=== PATIENT | male | born 1990 | race Caucasian/White ===

== ENCOUNTER → 2022-11-22 | Outpatient (CLI) | payer MEDICAID, SELFPAY ==
[2022-11-22 15:42] LABS: ALB/GLOB Ratio 1.5 RATIO (0.9-2.4); AST(SGOT) 13 U/L (15-37); Alanine Aminotransfer ALT/SGPT 20 U/L (16-61); Albumin, Serum 4.1 g/dL (3.2-5.0); Alkaline Phosphatase 57 U/L (45-117); Anion Gap 4 (5-15); BUN 12 mg/dL (7-18); BUN/Creat Ratio 12.3 RATIO (10-20); Calcium,Total 9.5 mg/dL (8.5-10.1); Chloride 105 mmol/L (98-107); Creatinine, Serum 0.97 mg/dL (0.70-1.30); EST Glomerular Filtration Rate 96 mL/min (>60); Est Glom Filt Rate - Afr Amer 116 mL/min (>60); Globulin 2.8 g/dL (2.2-4.2); Glucose 74 mg/dL (74-106); Lipase 176 U/L (73-393); Potassium 3.4 mmol/L (3.5-5.1); Protein, Total 6.9 g/dL (6.4-8.2); Sodium Level 138 mmol/L (136-145); T4 Free Direct 1.06 ng/dL (0.76-1.46)
[2022-11-22 15:43] LABS: Absolute Lymphocyte Count 1.52 X10^3/uL (0.83-4.51); Absolute Neutrophil Count 2.7 X10^3/uL (2.0-7.7); Basophil# 0.05 X10^3/uL; Eosinophil# 0.26 X10^3/uL; Eosinophils% 5.1 % (0-5); Hematocrit 47.4 % (40-54); Hemoglobin 15.6 g/dL (13.0-16.5); Lymphocyte # 1.52 X10^3/ul (0.83-4.51); Lymphocyte % 29.9 % (19-41); Mean Corp Hgb Conc 32.9 g/dL (32-36); Mean Corpuscular Hgb 29.1 pg (27.0-32.0); Mean Corpuscular Volume 88.3 fL (80-94); Monocyte# 0.56 X10^3/uL; NRBC Flagged by Analyzer 0 % (0-5); Neutrophil # 2.69 X10^3/uL (2.7-7.7); Neutrophil % 52.8 % (47-70); Platelet Count 205 K/mm3 (150-450); RBC Distribution Width CV 13.1 % (11.6-14.6); RBC Distribution Width SD 42.5 fl (35.1-43.9); Red Blood Count 5.37 M/mm3 (4.6-6.2); White Blood Count 5.1 K/mm3 (4.4-11.0)
[2022-11-28 16:09] LABS: Thyroid Stim Immunoglob <0.10 IU/L (0.00-0.55)
[2022-11-28 16:36] LABS: Anti-Thyroglobulin AB < 1.0 IU/mL (0.0-0.9); Thyroglobulin, Serum Qt. 18.1 ng/mL (1.4-29.2); Thyroid Peroxidase AB < 9 IU/mL (0-34)
== END | disposition home or self-care (01) ==
LOC: MFPLAB 12:21
PROVIDERS: PCP Family Medicine; Visit Provider Family Medicine
DX: R19.8 Other specified symptoms and signs involving the digestive system and abdomen (principal); R35.89 Other polyuria; R10.9 Unspecified abdominal pain; E01.0 Iodine-deficiency related diffuse (endemic) goiter
CPT/HCPCS: 36415; 80053; 83690; 84432; 84439; 84443; 84445; 85025; 86376; 86800

== ENCOUNTER → 2022-11-24 | Outpatient (CLI) | payer MEDICAID, SELFPAY ==
--- NOTE | 2022-11-24 10:15 | RAD_ITS ---
STUDY: X-RAY - ESOPHAGUS (BARIUM SWALLOW) WITH FLUOROSCOPY REASON FOR EXAM: Male, 32 years old. DYSPHAGIA TECHNIQUE: 14 view(s) of the esophagus were obtained following swallowing of barium. FLUOROSCOPY TIME (if supplied): (34 seconds) minutes/seconds COMPARISON: None. FINDINGS: There is no demonstrated esophageal foreign body. There is no demonstrated stricture or mucosal abnormality. Normal gastroesophageal junction, without a demonstrated hiatal hernia. The patient ingested a 12 mm tablet of barium without any difficulty. Normal visualized aortic arch and descending thoracic aorta. Normal visualized pulmonary parenchyma. Normal visualized osseous structures of the thorax. RAD/Esophagus Dual Contrast IMPRESSION: Normal plain film x-ray examination (barium swallow) of the esophagus. Electronically Signed: Sanchez Taylor MD at 10:57 EST ,
--- NOTE | 2022-11-24 10:26 | US_ITS ---
STUDY: THYROID ULTRASOUND REASON FOR EXAM: Male, 32 years old. Thyromegaly TECHNIQUE: Ultrasound evaluation of the thyroid was performed with real-time and static vela-scale imaging. COMPARISON: None. FINDINGS: RIGHT LOBE: The right lobe of the thyroid gland is enlarged and measures 5.4 cm x 2.1 cm x 1.7 cm. There is a homogeneous echotexture. There are no demonstrated solid, cystic or complex lesions. LEFT LOBE: The left lobe of the thyroid gland is enlarged and measures 5.7 cm x 2 cm x 1.8 cm. There is a homogeneous echotexture. There is a 3 mm x 3 mm x 2 mm well-defined hypoechoic solid nodule in the midpole of the left lobe with the perinodular and intralobular nodular vascularity. ISTHMUS: The isthmus measures 2.0 mm. The regional lymph nodes are normal. US/Thyroid IMPRESSION: Thyromegaly. 3 mm x 3 mm x 2 mm well-defined hypoechoic solid nodule in the midpole of the left lobe of the thyroid. Electronically Signed: Sanchez Taylor MD at 14:05 EST ,
--- NOTE | 2022-11-24 10:26 | US_ITS ---
INDICATION: Incomplete bladder emptying, evaluate postvoid residue EXAMINATION: Ultrasound ultrasound of the bladder TECHNIQUE: Edwards scale and color doppler imaging was performed of the urinary bladder. COMPARISON: None. FINDINGS: No definite stones, masses, or wall thickening. Limited evaluation of the bladder due to incomplete distention. Pre-void volume is 96 cc. Post-void volume is 9.8. Ureteral jet seen to the bladder bilaterally. Calcifications are seen in the region of the prostate. The prostate volume was calculated to be 26 cc. US/Post Void Residual Bladder IMPRESSION: Small not significant post void residue. Electronically Signed: Adeel Andrade MD at 9:29 EST ,
== END | disposition home or self-care (01) ==
LOC: US 10:01
PROVIDERS: PCP Family Medicine; Visit Provider Family Medicine
DX: R13.10 Dysphagia, unspecified (principal); E01.0 Iodine-deficiency related diffuse (endemic) goiter; E04.1 Nontoxic single thyroid nodule
CPT/HCPCS: 51798; 74221; 76536

== ENCOUNTER 2023-11-20 06:28 | Day surgery (SDC) | payer MEDICAID, SELFPAY ==
[2023-11-20] VITALS (7 sets, daily range): BP systolic 93–145; BP diastolic 52–115; PULSE 60–88; RESP 12–16; TEMP 36.2–36.6; O2SAT 94–100; BMI 22.1
[2023-11-20] MEDS: Lactated Ringers 1,000 ML 15 ML IV (06:59)
--- NOTE | 2023-11-20 07:16 | HP.PCM_ITS ---
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 A written compromise surgical consult will be returned to him. It is of note that the patient was initiated on omeprazole therapy 20 mg orally daily starting November 22, 2022 as the patient has symptoms consistent with GERD. It is of note that 4 to 5 years ago the patient suddenly lost about 100 pounds in weight. At that point he had frequent urination as well. That problem kind of occurs constantly. He has been having problems with reflux and nausea issues. If he does not continuously eat small amounts he will get lightheaded or foggy. Has not had any melena but on rare occasion will have some bright red blood per rectum. He is not on any blood thinners but he does take ibuprofen as needed. No history of DVT. On November 24, 2022 he had a barium esophagram. This was felt to be normal with no hiatal hernia. 12 mm barium tablet passed without difficulty. He is not aware of any family history of colon polyps or colon cancer. More recently has had some intermittent left mid abdominal pain kind of a sharp nature. Unclear as to that etiology ROS General General: Yes weight change and fatigue; No appetite, colon cancer, breast cancer or weakness HEENT HEENT: Yes difficulty swallowing and swollen glands; No eye injury, eye surgery or hoarseness Endo Endocrine: No thyroid disease, diabetes mellitus, thyroid cancer, Hair loss, heat intolerance or cold intolerance Skin Skin: No rash or changing moles Breast Breast: No left breast lump, right breast lump, nipple discharge, breast pain, abnormal mammogram, abnormal US or breast enlargement Musc Musculoskeletal: Yes back problems; No arthritis, rheumatoid arthritis, gout or joint pain Cardio Cardiovascular: No murmur, pacemaker, heart disease, atrial fibrillation, high blood pressure, heart attack, heart stent, palpitations, shortness of breat with exertion or chest pain Psych Psychiatric: Yes depression and anxiety; No hearing voices Resp Respiratory: Yes shortness of breath, No sleep apnea, No cough, No COPD, Yes asthma, No emphysema and No wheezing Gastro Gastrointestinal: Yes abdominal pain, Yes nausea or vomiting, Yes diarrhea, Yes constipation, Yes blood in stool, Yes acid reflux, No hemorrhoids, No ulcers, No gallbladder problem and No black,tarry stools Jm Hematologic: No blood thinners, No blood disorders, No bleeding, No anemia and No blood clots Neuro Neurologic: No system reviewed and no additional complaints, except as documented, No as per HPI, No abnormal gait, No abnormal hearing, No abnormal movements, No abnormal speech, No behavioral changes, No burning sensations, No confusion, No convulsions, No disequilibrium, No dizziness, No localized weakness, No frequent falls, No headache(s), No lack of coordination, No loss of vision, No memory loss, No numbness, No other visual disturbances, No radicular pain, No restless legs, No sensory deficit, No syncope, No tingling, No tremor(s), No weakness and No other Exam Const General: cooperative, comfortable and no acute distress Nutritional Appearance: average body habitus Orientation: alert, awake and oriented x3 HENMT Head: normal to inspection Eyes General: appearance normal, both eyes and all related structures Neck Neck: normal visual inspection Chest Chest palpation & inspection: normal inspection of the chest Resp Effort & Inspection: normal respiratory effort Auscultation: clear to auscultation bilaterally Cardio Rate: regular rate Rhythm: regular rhythm GI Palpation: soft and no hepatosplenomegaly Other: Abdomen is soft, I do not detect any hepatosplenomegaly, normal bowel sounds Musc Cervical Spine: normal cervical lordosis Skin General: no rashes or lesions noted Neuro General: patient alert, patient awake and patient oriented x3 Extrem General: no calf tenderness Psych Appearance: grossly normal Assessment and Plan Assessment and Plan (1) GERD (gastroesophageal reflux disease): Status: Acute Qualifiers: Esophagitis presence: esophagitis presence not specified Qualified Code(s): K21.9 - Gastro-esophageal reflux disease without esophagitis (2) Diarrhea: Status: Acute Qualifiers: Diarrhea type: unspecified type Qualified Code(s): R19.7 - Diarrhea, unspecified (3) Constipation: Status: Acute Qualifiers: Constipation type: unspecified constipation type Qualified Code(s): K59.00 - Constipation, unspecified Plan: 33-year-old gentleman. Concerns about reflux symptoms and nausea as well as variable bowel habits and looser diarrheal stools. Previous history of weight loss. Some symptoms that sound like transient hypoglycemia. I do propose for him a combined esophagogastroduodenoscopy with very careful inspection and biopsies as appropriate. Propose for him a colonoscopy with anticipated random biopsies as well. We will try to intubate the terminal ileum. He did have some questions about the sedation for the procedure and we will use this BACKEND PYTHON DEVELOPER. He has concerns about the clear liquid diet we discussed means of increasing his blood sugar with liquids in hopes of reverting any bowel prep induced difficulties. He has had an opportunity to ask and have questions answered. I appreciate the opportunity of assisting with his surgical care and we will schedule and proceed as noted. At this particular moment I am not detecting a surgical etiology to his issues. Copy: Dr Ye Flores M.D., F.A.C.S. I have examined the patient and the H&P has been reviewed. There are no clinical changes since date of exam. Patel Flores M.D., F.A.C.S.
--- NOTE | 2023-11-20 07:30 | COLBX_PTH ---
PATHOLOGY RESULTS PATIENT: EDGARDO MURILLO ACE LOC: EN U#:[id number] AGE/SX: 33/M ROOM: RE11/20/[address]: Dr. Patel Flores MD : 1990 BED: DIS: 11/20/2023 SPEC #: [id number] RECD: 11/20/23 11:38 STATUS: ESTER DUFF #: [id number] JUDSON: 11/20/23 07:[address]: Patel Flores DEPT: SURGICAL PATHOLOGY RECD BY: Nena Dong ENTERED: 11/20/23 11:39 SP TYPE: COLON BX OTHR DR: Dr. Ye Calloway MD Tissues: Duodenum, NOS Gastric mucous membrane Esophageal mucous membrane Esophageal mucous membrane Ileum, NOS COLON BIOPSY Rectum, NOS Procedures: Special Stain Group II Surgery Specimen Level IV Alcian Blue/PAS (control) HEADER OPERATION: Colonoscopy with biopsies and EGD with biopsies PRE-OP DIAGNOSIS: GERD, diarrhea, constipation TISSUE SUBMITTED: A - Duodenum biopsy, B - Antrum biopsy for H. pylori and path, C - Distal esophagus biopsy, D - Mid esophagus biopsy, E - Terminal ileum biopsy, F - Random colonic biopsy, G - Rectal polypoid mass biopsy MICROSCOPIC DIAGNOSIS A. Duodenum, biopsy: Fragments of duodenal mucosa, no pathologic diagnosis. B. Antrum, biopsy: Mild gastritis. See microscopic description and comment. C. Distal esophagus, biopsy: Fragments of gastroesophageal mucosa with chronic inflammation. Intestinal metaplasia (goblet cell metaplasia) not identified. See comment. D. Mid esophagus, biopsy: Fragments of benign squamous epithelium. E. Terminal ileum, biopsy: A fragment of small intestinal mucosa, no pathologic diagnosis. F. Colon, random biopsy: Fragments of colonic mucosa, no pathologic diagnosis. G. Rectal polypoid mass, biopsy: Consistent with mucosal prolapse syndrome with focal ulceration and associated acute inflammation. SJ:brandt 11/21/2023 COMMENT B. The results of immunohistochemistry for Helicobacter pylori will be reported separately ([id number]). C. The specimen predominantly consists of squamous mucosa. Alcian blue/PAS stain with matched control is used in the evaluation of the specimen. Case has been reviewed in consultation with Dr. Peoples who concurs with the above diagnosis. IDC:AM MICROSCOPIC DESCRIPTION Slides are reviewed. B. The specimen shows fragments of gastric mucosa with chronic inflammatory cell infiltrates in the lamina propria consisting of lymphocytes and plasma cells, consistent with mild chronic gastritis. GROSS DESCRIPTION A - Received in fixative is one container labeled with the patient's name and designated duodenum biopsy. The specimen consists of two irregular fragments of light middleton soft tissue that in aggregate measure 0.8 x 0.4 x 0.1 cm. The specimen is totally submitted in one cassette. B - Received in fixative is one container labeled with the patient's name and designated antrum biopsy. The specimen consists of one irregular fragment of light middleton soft tissue that measures 0.6 x 0.3 x 0.1 cm. The specimen is totally submitted in one cassette. C - Received in fixative is one container labeled with the patient's name and designated distal esophagus biopsy. The specimen consists of two irregular fragments of light middleton soft tissue that in aggregate measure 0.6 x 0.6 x 0.1 cm. The specimen is totally submitted in one cassette. D - Received in fixative is one container labeled with the patient's name and designated mid esophagus biopsy. The specimen consists of one irregular fragment of light middleton soft tissue that measures 0.6 x 0.3 x 0.1 cm. The specimen is totally submitted in one cassette. E - Received in fixative is one container labeled with the patient's name and designated terminal ileum biopsy. The specimen consists of one irregular fragment of light middleton soft tissue that measures 0.4 x 0.4 x 0.1 cm. The specimen is totally submitted in one cassette. F - Received in fixative is one container labeled with the patient's name and designated random colonic biopsy. The specimen consists of multiple irregular fragments of light middleton soft tissue that in aggregate measure 1.0 x 0.6 x 0.1 cm. The specimen is totally submitted in one cassette. G - Received in fixative is one container labeled with the patient's name and designated rectal polypoid mass. The specimen consists of multiple irregular fragments of light middleton soft tissue that in aggregate measure 1.0 x 0.2 x 0.1 cm. The specimen is totally submitted in one cassette. / SJ:brandt 11/20/2023 TC:3 CPT: 28031 x7, 92042
--- NOTE | 2023-11-20 07:30 | IMM_PTH ---
PATHOLOGY RESULTS PATIENT: EDGARDO MURILLO ACE LOC: EN U#:[id number] AGE/SX: 33/M ROOM: RE11/20/[address]: Dr. Patel Flores MD : 1990 BED: DIS: 11/20/2023 SPEC #: [id number] RECD: 11/20/23 12:31 STATUS: ESTER RERonna #: [id number] JUDSON: 11/20/23 07:[address]: Patel Flores DEPT: IMMUNOHISTOCHEMISTRY RECD BY: Cat Sandoval ENTERED: 11/20/23 12:31 SP TYPE: IMMUNO OTHR DR: Dr. Ye Calloway MD Tissues: Stomach, NOS Procedures: H Pylori (initial) PHYSICIAN & INSTITUTION [place] [address] SPECIMEN INFORMATION: Tissue Source: B - Antrum Clinical Info: GERD, diarrhea, constipation Specimen Number: [id number] CPT code: 76241 METHODOLOGY: Deparaffinized sections of prefer/formalin-fixed tissue or PAP/DQ stained slides are incubated with monoclonal/polyclonal antibodies/oligonucleotide probes. Localization is made via biotin free immunoperoxidase method. Appropriate controls are performed and reacted as expected. Results on target cell population are indicated in the following table: RESULTS: ANTIBODY / CLONE RESULT Block B H Pylori (polyclonal) negative These tests were developed and their performance characteristics determined by [facility]. They may not have been cleared or approved by the U.S. Food and Drug Administration. The FDA has determined that such clearance or approval is not necessary. The above immunohistochemical/dualISH markers are ordered and reviewed by the Pathologist. INTERPRETATION: B. Antrum, biopsy: Negative for Helicobacter pylori organisms. SJ:brandt 11/21/2023
--- NOTE | 2023-11-20 08:18 | OP.CCLET_ITS ---
11/20/2023 Ye Calloway [address] [place] [address] Re : Upper GI endoscopy procedure for Reese Thomas Dear Dr. Calloway This procedure was performed on Monday, November 20, 2023. My impressions and recommendations are as follows: Impressions : - Normal middle third of esophagus. Biopsied. - Normal distal esophagus. Biopsied. - Z-line regular, 41 cm from the incisors. - 1 cm hiatal hernia. - Erythematous mucosa in the antrum. Biopsied. - Normal examined duodenum. Biopsied. Recommendations : - Discharge patient to home. - Resume previous diet. - Continue present medications. - Telephone my office for pathology results in 1 week. My findings are described in the full procedure note, which is enclosed. If I can be of further assistance, please feel free to contact me at Doctor phone number(s): Work: . Sincerely, Patel Flores MD 11/20/2023 8:17:40 AM This report has been signed electronically.
--- NOTE | 2023-11-20 08:18 | OP.EGD_ITS ---
Patient Name: Reese Thomas Procedure Date: 11/20/2023 7:39 AM Date of : 1990 Age: 33 Procedure: Upper GI endoscopy Indications: Suspected gastro-esophageal reflux disease Providers: Patel Flores MD Medicines: See the Anesthesia note for documentation of the administered medications Complications: No immediate complications. Procedure: Pre-Anesthesia Assessment: - Prior to the procedure, a History and Physical was performed, and patient medications and allergies were reviewed. The patient's tolerance of previous anesthesia was also reviewed. The risks and benefits of the procedure and the sedation options and risks were discussed with the patient. All questions were answered, and informed consent was obtained. Prior Anticoagulants: The patient has taken no anticoagulant or antiplatelet agents. ASA Grade Assessment: II - A patient with mild systemic disease. After reviewing the risks and benefits, the patient was deemed in satisfactory condition to undergo the procedure. After obtaining informed consent, the endoscope was passed under direct vision. Throughout the procedure, the patient's blood pressure, pulse, and oxygen saturations were monitored continuously. The Colonoscope was introduced through the mouth, and advanced to the second part of duodenum. The upper GI endoscopy was accomplished without difficulty. The patient tolerated the procedure well. Scope In: 7:45:56 AM Scope Out: 7:52:16 AM Total Procedure Duration Time 0 hours 6 minutes 20 seconds Findings: The middle third of the esophagus was normal. Biopsies were taken with a cold forceps for histology. The distal esophagus was normal. Biopsies were taken with a cold forceps for histology. The Z-line was regular and was found 41 cm from the incisors. A 1 cm hiatal hernia was present. Diffuse mildly erythematous mucosa without bleeding was found in the gastric antrum. Biopsies were taken with a cold forceps for histology. The examined duodenum was normal. Biopsies were taken with a cold forceps for histology. Impression: - Normal middle third of esophagus. Biopsied. - Normal distal esophagus. Biopsied. - Z-line regular, 41 cm from the incisors. - 1 cm hiatal hernia. - Erythematous mucosa in the antrum. Biopsied. - Normal examined duodenum. Biopsied. Recommendation: - Discharge patient to home. - Resume previous diet. - Continue present medications. - Telephone my office for pathology results in 1 week. Procedure Code(s): --- Professional --- 61057, Esophagogastroduodenoscopy, flexible, transoral; with biopsy, single or multiple Diagnosis Code(s): --- Professional --- K44.9, Diaphragmatic hernia without obstruction or gangrene K31.89, Other diseases of stomach and duodenum CPT copyright 2021 [employer] [place] [employer]. All rights reserved. The codes documented in this report are preliminary and upon spa host review may be revised to meet current compliance requirements. Patel Flores MD 11/20/2023 8:17:40 AM This report has been signed electronically. Number of Addenda: 0 Note Initiated On: 11/20/2023 7:39 AM
--- NOTE | 2023-11-20 08:22 | OP.CCLET_ITS ---
11/20/2023 Ye Calloway [address] [place] [address] Re : Colonoscopy procedure for Reeseleón Thomas Dear Dr. Calloway This procedure was performed on Monday, November 20, 2023. My impressions and recommendations are as follows: Impressions : - Non-thrombosed external hemorrhoids, non-thrombosed internal hemorrhoids and internal hemorrhoids (Grade I) found on digital rectal exam. - The examined portion of the ileum was normal. Biopsied. - Congested mucosa in the mid rectum. Biopsied. - Biopsies were taken with a cold forceps from the entire colon for evaluation of microscopic colitis. Recommendations : - Discharge patient to home. - Resume previous diet. - Continue present medications. - Repeat colonoscopy age 52 for screening purposes. - Telephone my office for pathology results in 1 week. Congested mid to proximal rectal mucosa of undetermined urology. Possibly bowel prep related. Will await pathology results. Random colonic biopsies obtained as well looking for microcytic colitis. My findings are described in the full procedure note, which is enclosed. If I can be of further assistance, please feel free to contact me at Doctor phone number(s): Work: . Sincerely, Patel Flores MD 11/20/2023 8:21:52 AM This report has been signed electronically.
--- NOTE | 2023-11-20 08:22 | OP.COLON_ITS ---
Patient Name: Reese Thomas Procedure Date: 11/20/2023 7:52 AM Date of : 1990 Age: 33 Procedure: Colonoscopy Indications: Clinically significant diarrhea of unexplained origin Providers: Patel Flores MD Medicines: See the Anesthesia note for documentation of the administered medications Patient Profile: Last Colonoscopy: none. The patient's first colonoscopy is today. Complications: No immediate complications. Procedure: Pre-Anesthesia Assessment: - Prior to the procedure, a History and Physical was performed, and patient medications and allergies were reviewed. The patient's tolerance of previous anesthesia was also reviewed. The risks and benefits of the procedure and the sedation options and risks were discussed with the patient. All questions were answered, and informed consent was obtained. Prior Anticoagulants: The patient has taken no anticoagulant or antiplatelet agents. ASA Grade Assessment: II - A patient with mild systemic disease. After reviewing the risks and benefits, the patient was deemed in satisfactory condition to undergo the procedure. After I obtained informed consent, the scope was passed under direct vision. Throughout the procedure, the patient's blood pressure, pulse, and oxygen saturations were monitored continuously. The Colonoscope was introduced through the anus and advanced to the terminal ileum. The colonoscopy was performed without difficulty. The patient tolerated the procedure well. The quality of the bowel preparation was good. The terminal ileum, the ileocecal valve and the appendiceal orifice were photographed. Scope In: 7:53:33 AM Scope Withdrawal Time 0 hours 15 minutes 12 seconds Scope Out: 8:13:22 AM Total Procedure Duration Time 0 hours 19 minutes 49 seconds Findings: The digital rectal exam findings include non-thrombosed external hemorrhoids, non-thrombosed internal hemorrhoids and internal hemorrhoids (Grade I). The terminal ileum appeared normal. Biopsies were taken with a cold forceps for histology. An area of moderately congested mucosa was found in the mid rectum. Biopsies were taken with a cold forceps for histology. Biopsies for histology were taken with a cold forceps from the entire colon for evaluation of microscopic colitis. Impression: - Non-thrombosed external hemorrhoids, non-thrombosed internal hemorrhoids and internal hemorrhoids (Grade I) found on digital rectal exam. - The examined portion of the ileum was normal. Biopsied. - Congested mucosa in the mid rectum. Biopsied. - Biopsies were taken with a cold forceps from the entire colon for evaluation of microscopic colitis. Recommendation: - Discharge patient to home. - Resume previous diet. - Continue present medications. - Repeat colonoscopy age 52 for screening purposes. - Telephone my office for pathology results in 1 week. Congested mid to proximal rectal mucosa of undetermined urology. Possibly bowel prep related. Will await pathology results. Random colonic biopsies obtained as well looking for microcytic colitis. Procedure Code(s): --- Professional --- 67318, Colonoscopy, flexible; with biopsy, single or multiple Diagnosis Code(s): --- Professional --- K64.0, First degree hemorrhoids K64.4, Residual hemorrhoidal skin tags K62.89, Other specified diseases of anus and rectum R19.7, Diarrhea, unspecified CPT copyright 2021 [employer]. All rights reserved. The codes documented in this report are preliminary and upon shank archer review may be revised to meet current compliance requirements. Patel Flores MD 11/20/2023 8:21:52 AM This report has been signed electronically. Number of Addenda: 0 Note Initiated On: 11/20/2023 7:52 AM
== END 2023-11-20 09:19 | disposition home or self-care (01) ==
LOC: EN 06:30 → AC 06:32
PROVIDERS: PCP Family Medicine; Referring Provider Family Medicine; Visit Provider Surgery
PROC: 0DJD8ZZ Inspection of Lower Intestinal Tract, Via Natural or Artificial Opening Endoscopic (ICD-10-PCS; CPT 45378; principal; 2023-11-20 07:25)
DX: R19.7 Diarrhea, unspecified (principal); K64.0 First degree hemorrhoids; K59.00 Constipation, unspecified; K44.9 Diaphragmatic hernia without obstruction or gangrene; K21.9 Gastro-esophageal reflux disease without esophagitis; K62.89 Other specified diseases of anus and rectum; K31.89 Other diseases of stomach and duodenum; K29.70 Gastritis, unspecified, without bleeding
CPT/HCPCS: 45380; 43239; 88305; 88313; 88342; J7120; J2405

== ENCOUNTER → 2023-12-21 | Outpatient (CLI) | payer MEDICAID, SELFPAY ==
--- OUTSIDE RECORDS SUMMARY | 2023-12-21 17:38 | XMS RPT_ITS | CCD ---
Author Name Unknown Address [facility] [address] [place] [id number] Organization [facility] Care Team Providers Care Skatesman Name Role Phone Unavailable Primary Care Provider AMINTA Tovar Attending Unavailable Allergies Allergy Classification Reported Allergen(s) Allergy Type Date of Onset Reaction(s) Facility (2 sources) Clarithromycin; Translations: [CLARITHROMYCIN] Drug Allergy 12-06-2023 Anaphylaxis [facility] Medications Current Medications Medication Drug Class(es) Dates Sig (Normalized) Sig (Original) cetirizine hydrochloride 10 mg oral tablet (1 source) Histamine-1 Receptor Antagonist take 1 tablet by mouth once daily cetirizine (ZyrTEC) 10 mg tablet Take 1 tablet (10 mg) by mouth once daily. 0 Active phenylephrine hydrochloride 10 mg oral tablet (1 source) alpha-1 Adrenergic Agonist take 1 tablet by mouth every four hours as needed phenylephrine (Sudafed PE) 10 mg tablet Take 1 tablet (10 mg) by mouth every 4 hours if needed for congestion. 0 Active Problems Problem Classification Problem Date Documented Da te Episodic/Chronic Other gastrointestinal disorders (2 sources) Diarrhea; Translations: [Intestinal malabsorption, unspecified] Onset: 12-06-2023 12-06-2023 Chronic Other gastrointestinal disorders (2 sources) Intestinal malabsorption, unspecified; Translations: [Intestinal malabsorption, unspecified] Onset: 12-06-2023 Chronic Other gastrointestinal disorders (2 sources) Diarrhea, unspecified; Translations: [Diarrhea, unspecified] Onset: 12-06-2023 Episodic Residual codes; unclassified (2 sources) History of clinical finding in subject; Translations: [Personal history of other specified conditions] Onset: 12-06-2023 12-06-2023 Episodic Residual codes; unclassified (2 sources) Personal history of other specified conditions; Translations: [Personal history of other specified conditions] Onset: 12-06-2023 Episodic Vital Signs Date Time Vital Sign Value Performing Clinician Jo-Ann wall 12-06-2023 14:52-0500 Body weight 76.93 kg Aminta Ricci DO Work Phone: [facility] Encounters Encounter Date Encounter Type Care Provider Facility Start: 12-06-2023 End: 12-06-2023 ambulatory AMINTA RICCI [facility] Ambulatory Start: 12-06-2023 End: 12-06-2023 Office outpatient new 45 minutes Aminta Ricci DO Work Phone: [facility] Plan of Treatment Date Care Activity Detail Author Start: 2042 Zoster Vaccines (1 o f 2) Zoster Vaccines (1 of 2) [facility] Start: 12-06-2023 End: 12-06-2024 C reactive protein [Mass/volume] in Serum or Plasma C-Reactive Protein Lab Routine History of abnormal weight loss Diarrhea due to malabsorption Expected: 12/06/2023 (Approximate), Expires: 12/06/2024 [facility] Work Phone: Payers Date Payer Category Payer Unknown SAMRA YEAGER [id number] 2023-Present [address] [place] [address] [id number] 2023 Unknown [id number] 1990 Unknown [id number] Social History Date Type Detail Facility Start: 12-06-2023 Tobacco smoking stat us VAIS Never smoked tobacco [facility] Work Phone: Start: 12-06-2023 Tobacco use and exposure User of smokeless tobacco [facility] Work Phone: Start: 12-06-2023 Alcohol intake Ex-drinker (finding) [facility] Work Phone: Start: 1990 Sex Assigned At Not on file [facility] Work Phone: Gender identity Not on file [facility] Work Phone: Start: 11-26-2023 End: 12-06-2023 Exposure to SARS-CoV-2 (event) Not sure [facility] History of Present illness Narrative 12-06-2023 Aminta Ricci, DO - 12/06/2023 2:45 PM EST Note Date & Type Note Facility 12-06-2023 History of Present illness Narrative Subjective Patient ID: Edgardo Murilol is a 33 y.o. male who presents for New Patient Visit (Weight loss. Maternal Grandma hx of colon CA., Maternal aunt IBS. Mother has concerns with hands and feet/legs being very red, tingling. Taking PPI but unaware which one at this time. ), Diarrhea (X 2 years intermittent with constipation, LUQ pain), Constipation (Will need to urinate frequently if doesn't go to the bathroom on que), Nausea, Black or Bloody Stool (Patient reports on occasion. ), and Gas. HPI 33-year-old male longstanding history of reflux beginning in adolescence. Was formally seeing [facility] where he was diagnosed with reflux disease but did likely have issues in his 30s. Approximately 2 years ago developed cyclic constipation and now tequila diarrhea averaging 2-4 bowel movements daily with urgency. Abdominal bloating following meals. Stool is always loose never formed. Admits to no rectal bleeding. Recent underwent EGD and colonoscopy in [place], findings of hiatal hernia pathology unknown. I was able to review some diagnostic studies to his family doctor which included thyroid ultrasound, right upper quadrant ultrasound and barium swallow which were unremarkable. Family history negative for inflammatory bowel disease, malabsorption or cancer. Positive family history of colon cancer in maternal grandparent. Review of Systems Constitutional: Positive for fatigue and unexpected weight change. HENT: Negative. Eyes: Negative. Respiratory: Negative. Cardiovascular: Negative. Gastrointestinal: Positive for abdominal distention, abdominal pain and diarrhea. Endocrine: Positive for polyuria. Genitourinary: Negative. Musculoskeletal: Negative. Neurological: Negative. Hematological: Negative. Psychiatric/Behavioral: Negative. Objective Physical Exam Vitals and nursing note reviewed. Constitutional: Appearance: Normal appearance. HENT: Head: Normocephalic. Mouth/Throat: Mouth: Mucous membranes are moist. Pharynx: Oropharynx is clear. Eyes: Pupils: Pupils are equal, round, and reactive to light. Cardiovascular: Rate and Rhythm: Normal rate and regular rhythm. Pulmonary: Effort: Pulmonary effort is normal. Breath sounds: Normal breath sounds. Abdominal: General: Abdomen is flat. Bowel sounds are normal. Palpations: Abdomen is soft. Musculoskeletal: General: Normal range of motion. Cervical back: Normal range of motion and neck supple. Skin: General: Skin is warm and dry. Neurological: General: No focal deficit present. Mental Status: He is alert and oriented to person, place, and time. Psychiatric: Mood and Affect: Mood normal. Behavior: Behavior normal. Assessment/Plan There are no diagnoses linked to this encounter. Problem List Items Addressed This Visit History of abnormal weight loss - Primary Diarrhea due to malabsorption Problem List Items Addressed This Visit History of abnormal weight loss - Primary Relevant Orders CT abdomen pelvis w IV contrast Celiac Panel CT abdomen pelvis w IV contrast Comprehensive Metabolic Panel Hemoglobin A1c C-Reactive Protein Diarrhea due to malabsorption Relevant Orders CT abdomen pelvis w IV contrast Celiac Panel CT abdomen pelvis w IV contrast Comprehensive Metabolic Panel Hemoglobin A1c C-Reactive Protein Given his symptoms of abdominal bloating diarrhea unexpected weight loss need to exclude malabsorption. Given his polydipsia and polyuria we will arrange hemoglobin A1c general chemistries. Will follow-up after CT scan and lab work. Aminta Ricci DO 12/06/23 3:14 PM documented in this encounter [facility] Work Phone: Evaluation note Note Date & Type Note Facility documented in this encounter [facility] Work Phone: Reason for Referral Specialty Diagnoses / Procedures Referred By Candido rowe Referred To Contact Radiology Diagnoses History of abnormal weight loss Diarrhea due to malabsorption Procedures CT abdomen pelvis w IV contrast Aminta Ricci DO [address] [facility], [facility] [address] [id number] Referral ID Status Reason Start Date Expiration Date Visits Requested Visits Authorized Pending Review Perform Procedure 12/06/2023 12/05/2024 1 1 Referral ID Status Reason Start Date Expiration Date Visits Requested Visits Authorized [id number] Pending Review Perform Procedure 12/06/2023 12/05/2024 1 1 Summary Purpose Family History No Family History Records Found Advance Directives No Advanced Directives Records Found Additional Source Comments Reason for Visit (unrecogniz ed section and content) (unrecognized sect ion and content) No Status Records Found INFORMATION SOURCE (unrecogn ized section and content) FOR RECORDS PERTAINING TO PATIENTS WHO ARE OR HAVE BEEN ENROLLED IN A CHEMICAL DEPENDENCY/SUBSTANCEABUSE PROGRAM, SOME INFORMATION MAY BE OMITTED. This clinical summary was aggregated from multiple sources. Caution should be exercised in using it in the provision of clinical care. This summary normalizes information from multiple sources, and as a consequence, information in this document may materially change the coding, format and clinical context of patient data. In addition, data may be omitted in some cases. CLINICAL DECISIONS SHOULD BE BASED ON THE PRIMARY CLINICAL RECORDS. [employer] provides no warranty or guarantee of the accuracy or completeness of information in this document.
[2023-12-21 18:26] LABS: Hemoglobin A1c 4.8 % (3.8-5.6)
[2023-12-21 18:36] LABS: ALB/GLOB Ratio 1.2 RATIO (0.9-2.4); AST(SGOT) 18 U/L (15-37); Alanine Aminotransfer ALT/SGPT 27 U/L (16-61); Albumin, Serum 4.1 g/dL (3.2-5.0); Alkaline Phosphatase 74 U/L (45-117); Anion Gap 2 (5-15); BUN 12 mg/dL (7-18); BUN/Creat Ratio 10.9 RATIO (10-20); CRP < 2.90 mg/L (0.0-3.0); Calcium,Total 9.1 mg/dL (8.5-10.1); Chloride 103 mmol/L (98-107); EST Glomerular Filtration Rate 83 mL/min (>60); Est Glom Filt Rate - Afr Amer 100 mL/min (>60); Globulin 3.3 g/dL (2.2-4.2); Glucose 76 mg/dL (74-106); Potassium 3.6 mmol/L (3.5-5.1); Protein, Total 7.4 g/dL (6.4-8.2); Sodium Level 134 mmol/L (136-145)
[2023-12-24 16:09] LABS: Endomysial Antibody IgA Negative (Negative); Immunoglobulin A 353 mg/dL (90-386); t-Transglutaminase IgA <2 U/mL (0-3)
== END | disposition home or self-care (01) ==
LOC: MTLAB 14:40
PROVIDERS: PCP Family Medicine; Referring Provider Internal Medicine; Visit Provider Internal Medicine
DX: Z87.898 Personal history of other specified conditions (principal); K90.9 Intestinal malabsorption, unspecified; R19.7 Diarrhea, unspecified
CPT/HCPCS: 36415; 80053; 82784; 83036; 83516; 86140; 86255

== ENCOUNTER → 2024-03-11 | Outpatient (CLI) | payer MEDICAID, SELFPAY ==
[2024-03-11 18:29] LABS: Lipase 51 U/L (13-75)
== END | disposition home or self-care (01) ==
LOC: MFPLAB 14:53
PROVIDERS: PCP Family Medicine; Visit Provider Family Medicine
DX: R10.9 Unspecified abdominal pain (principal)
CPT/HCPCS: 36415; 83690